=== PATIENT | male | born 1960 | race Caucasian/White ===

== ENCOUNTER 2023-05-05 10:18 | Outpatient (OUT) | payer OTHER, SELFPAY ==
--- NOTE | 2023-05-05 | ECG_ITS ---
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
== END 2023-05-05 10:19 ==
LOC: CARD 10:21
PROVIDERS: PCP Internal Medicine; Visit Provider Internal Medicine
DX: Z01.810 Encounter for preprocedural cardiovascular examination (principal)
CPT/HCPCS: 93005

== ENCOUNTER 2023-06-07 11:42 | Outpatient (OUT) | payer OTHER, SELFPAY ==
[2023-06-07 12:13] LABS: Basophils Percent Auto 0.6 % (0.2-2.0); Eosinophils Absolute Auto 0.1 10^3/uL (0.0-0.7); Eosinophils Percent Auto 1.7 % (0.9-7.0); Hematocrit 50.9 % (42.0-54.0); Hemoglobin 16.9 g/dL (14.0-18.0); Immature Granulocytes Abs Auto 0.02 10^3/uL (0.00-0.03); Immature Granulocytes Pct Auto 0.3 % (0.0-0.5); Lymphocytes Absolute Auto 1.6 10^3/uL (1.2-3.8); Mean Corpuscular HGB Conc 33.2 g/dL (29.9-35.2); Mean Corpuscular Hemoglobin 31.6 pg (25.9-34.0); Mean Corpuscular Volume 95.1 fL (80.0-94.0); Mean Platelet Volume 9.9 fL (9.5-13.5); Monocytes Absolute Auto 0.6 10^3/uL (0.3-0.8); Neutrophils Absolute Auto 4.6 10^3/uL (1.4-6.5); Neutrophils Percent Auto 66.4 % (43.0-75.0); Platelet Count 148 10^3/uL (150-450); Red Blood Count 5.35 10^6/uL (4.70-6.10); Red Cell Distribution Width 14.3 % (11.0-15.0); White Blood Count 6.9 10^3/uL (4.0-11.0)
[2023-06-07 12:47] LABS: Anion Gap 9.4; Calcium 9.2 mg/dL (8.5-10.1); Carbon Dioxide 31.5 mmol/L (21.0-32.0); Chloride 103 mmol/L (98-107); Estimated GFR (African America >60 (>=60); Estimated GFR (Non-African Ame >60 (>=60); Glucose 112 mg/dL (74-106); Potassium 3.9 mmol/L (3.5-5.1); Sodium 140 mmol/L (136-145)
== END 2023-06-07 11:43 | disposition home or self-care (01) ==
LOC: LAB 11:45
PROVIDERS: PCP Internal Medicine; Visit Provider Internal Medicine
DX: Z01.818 Encounter for other preprocedural examination (principal)
CPT/HCPCS: 36415; 80048; 85025

== ENCOUNTER 2024-11-27 12:18 | Outpatient (OUT) | payer OTHER, MEDICARE, SELFPAY ==
[2024-11-27 13:16] LABS: Basophils Percent Auto 0.4 % (0.2-2.0); Eosinophils Absolute Auto 0.1 10^3/uL (0.0-0.7); Eosinophils Percent Auto 2.5 % (0.9-7.0); Hematocrit 42.3 % (42.0-54.0); Hemoglobin 14.6 g/dL (14.0-18.0); Immature Granulocytes Abs Auto 0.02 10^3/uL (0.00-0.03); Immature Granulocytes Pct Auto 0.4 % (0.0-0.5); Lymphocytes Absolute Auto 0.7 10^3/uL (1.2-3.8); Lymphocytes Percent Auto 13.9 % (20.5-60.0); Mean Corpuscular HGB Conc 34.5 g/dL (29.9-35.2); Mean Corpuscular Hemoglobin 32.2 pg (25.9-34.0); Mean Corpuscular Volume 93.2 fL (80.0-94.0); Mean Platelet Volume 9.7 fL (9.5-13.5); Monocytes Absolute Auto 0.4 10^3/uL (0.3-0.8); Monocytes Percent Auto 9.1 % (1.7-12.0); Neutrophils Absolute Auto 3.6 10^3/uL (1.4-6.5); Neutrophils Percent Auto 73.7 % (43.0-75.0); Platelet Count 121 10^3/uL (150-450); Red Blood Count 4.54 10^6/uL (4.70-6.10); Red Cell Distribution Width 12.5 % (11.0-15.0); White Blood Count 4.8 10^3/uL (4.0-11.0)
[2024-11-27 13:58] LABS: Alanine Aminotransferase 148 U/L (16-63); Albumin Globulin Ratio 1.2; Albumin Level 3.8 g/dL (3.4-5.0); Alkaline Phosphatase 75 U/L (46-116); Aspartate Amino Transferase 99 U/L (15-37); BUN Creatinine Ratio 7.5; Bilirubin Total 0.4 mg/dL (0.2-1.0); Calcium 9.4 mg/dL (8.5-10.1); Carbon Dioxide 31.7 mmol/L (21.0-32.0); Chloride 96 mmol/L (98-107); Chol HDL Ratio 1.9; Cholesterol 180 mg/dL (<=200); Estimated GFR (African America >60 (>=60 mL/min/1.73m^2); Estimated GFR (Non-African Ame >60 (>=60 mL/min/1.73m^2); Globulin 3.3 g/dL; Glucose 108 mg/dL (74-106); HDL Cholesterol 95 mg/dL (40-60); Potassium 4.7 mmol/L (3.5-5.1); Sodium 135 mmol/L (136-145); Total Protein 7.1 g/dL (6.4-8.2); Triglycerides 40 mg/dL (<=150); Uric Acid 5.7 mg/dL (3.5-7.2)
[2024-11-27 14:04] LABS: Prostate Specific Antigen Scrn 1.64 ng/mL (<=4.00)
== END 2024-11-27 12:19 | disposition home or self-care (01) ==
LOC: LAB 12:20
PROVIDERS: PCP Internal Medicine; Visit Provider Internal Medicine
DX: K21.00 Gastro-esophageal reflux disease with esophagitis, without bleeding (principal); Z87.39 Personal history of other diseases of the musculoskeletal system and connective tissue; I10 Essential (primary) hypertension; E78.00 Pure hypercholesterolemia, unspecified; Z12.5 Encounter for screening for malignant neoplasm of prostate
CPT/HCPCS: 36415; 80053; 80061; 84550; 85025; G0103